=== PATIENT | female | born 1950 | race Hispanic/Latino ===

== ENCOUNTER → 2019-09-07 | Day surgery (SDC) | payer MEDICARE ==
[2019-09-01 09:00] LABS: BASOPHILS % 0.5 % (0.0-1.0); EOSINOPHILS # (AUTO) 0.2 (0.0-0.4); EOSINOPHILS % 2.3 % (0.0-6.0); HEMATOCRIT 40.1 % (34.2-44.1); HEMOGLOBIN 12.8 g/dL (12.0-16.0); LYMPHOCYTES # (AUTO) 2.4 (1.0-3.2); LYMPHOCYTES % 36.9 % (18.0-39.1); MEAN CORPUSCULAR HEMOGLOBIN 28.5 pg (28-32); MEAN CORPUSCULAR HGB CONC 31.9 g/dL (31-35); MEAN CORPUSCULAR VOLUME 89.3 fL (81-99); MONOCYTES # (AUTO) 0.3 (0.2-0.8); MONOCYTES % 5.2 % (4.4-11.3); NEUTROPHILS # (AUTO) 3.6 (2.1-6.9); NEUTROPHILS % 54.9 % (38.7-80.0); PLATELET COUNT 240 x10e3/uL (140-360); RED BLOOD COUNT 4.49 x10e6/uL (3.6-5.1); RED CELL DISTRIBUTION WIDTH 13.2 % (11.7-14.4)
[~2019-09-07] MED LIST: ATORVASTATIN CA20 MG PO; EPHEDRINE SULFATE INJ 50 MG/ML VIAL ONE; FENTANYL CITRATE/PF 100MCG/2 ML INJ ONE; LIDOCAINE HCL 2% LOCAL INJ 5 ML SDV VIAL INJ ONE; LOSARTAN POTAS100 MG PO; METFORMIN HCL500 M1 PO; MIDAZOLAM HCL 2 MG/2 ML VIAL ONE; PROPOFOL IV EMULSION 10 MG/ML 50 ML VIAL ONE
--- OUTSIDE RECORDS SUMMARY | 2019-09-07 05:20 | XMS REPORT ---
Author Author [facility] Address Unknown Phone Unavailable Care Team Providers Care First Officer Name Role Phone Unavailable Unavailable Problems This patient has no known problems. Allergies, Adverse Reactions, Alerts This patient has no known allergies or adverse reactions. Medications This patient has no known medications. Results Test Description Test Time Test Comments Text Results Atomic Results Result Comments SCR MAMM BILATERAL MARCO CAD DIGITAL 2018-09-07 13:29:35 - SCR MAMM BILATERAL MARCO CAD DIGITALBILATERAL DIGITAL SCREENING MAMMOGRAM 3D/2D WITH CAD: 08/21/2018CLINICAL: Asymptomatic. Digital breast tomosynthesis was performed in addition to routine CC and MLO views. Current mammographic images were evaluated by either a [employer] M-Vu or a [employer] CAD (computer aided detection system). Comparison is made to exams dated 03/06/2017 mammogram, 12/13 mammogram, 07/29/2014 mammogram, [facility] There are scattered fibroglandular tissues in both breasts. There are benign calcifications in the left breast. No suspicious mass, architectural distortion, malignant type calcification, or lymph node abnormality detected. Breast architecture is stable compared to prior exams.IMPRESSION: BENIGNThere is no mammographic evidence of malignancy. Resume annual screening mammography in one year. Emmanuelle cano/darwin:09/07/2018 13:29:35 Agricultural Economist: Beverly LOPES, [facility]-FWletter sent: BIRADS 1-2 Normal Mammogram BI-RADS: 2 Benign
--- OUTSIDE RECORDS SUMMARY | 2019-09-07 05:20 | XMS REPORT | Encounter Summary ---
Author Organization Unknown Address [address] [place] [address] Phone [phone] Care Team Providers Care Roller Setter Name Role Phone Dr. Leslee Dillard 3 [phone] Reason for Visit Benign essential hypertension; Mixed hyperlipidemia due to type 2 diabetes mellitus; Type 2 diabetes mellitus; diabetic foot exam; Annual Depression Screening Instructions 1. Type 2 diabetes mellitus HbA1c (hemoglobin A1c), blood 2. Mixed hyperlipidemia due to type 2 diabetes mellitus atorvastatin 20 mg tablet CMP, serum or plasma lipid panel, serum 3. Eye disorder screening diabetic ophthalmology referral 4. Depression screening learning about depression 5. Screening for disorder hepatitis C virus Ab, serum 6. Screening for malignant neoplasm of colon fecal occult blood, stool colonoscopy referral 7. Benign essential hypertension CBC w/ auto diff losartan 100 mg tablet 8. Body mass index 30+ - obesity body mass index: care instructions learning about healthy weight 9. Increased stress Discussion Note: None recorded. Plan of Care Reminders Provider Appointments Est Patient 06/18/2019 9:30AM Leslee Dillard MD Lab Hepatitis C Virus Ab, Serum 12/18/2018 [facility] Fecal Occult Blood, Stool 12/18/2018 [facility] HbA1C (Hemoglobin a1C), Blood 12/18/2018 [facility] CMP, Serum or Plasma 12/18/2018 [facility] Lipid Panel, Serum 12/18/2018 [facility] CBC W/ Auto Diff 12/18/2018 [facility] Referral Diabetic Ophthalmology Referral 12/18/2018 Liset Barth MD Colonoscopy Referral 12/18/2018 Christine Flores MD Procedures None recorded. Surgeries None recorded. Imaging None recorded. Medications Name Start Date atorvastatin 20 mg tablet TAKE 1 TABLET DAILY BY ORAL ROUTE losartan 100 mg tablet Take 1 tablet every day by oral route for 90 days. metformin ER 750 mg tablet,extended release 24 hr TAKE 2 TABLETS BY MOUTH EVERY DAY Medications Administered None recorded. Vitals Height Weight BMI Blood Pressure 5 ft 162 lbs 31.6 kg/m2 126/70 mm[Hg] Lab Results None recorded. Allergies Code Code System Name Reaction Severity Status Onset NKDA Problems Name Status Onset Date Source Type 2 Diabetes Mellitus Active 08/06/2018 Benign Essential Hypertension Active 08/06/2018 Vertigo Active 08/06/2018 Postmenopausal State Active 08/06/2018 Mixed Hyperlipidemia Due to Type 2 Diabetes Mellitus Active 08/06/2018 Procedures Date Name Performed by 07/14/2005 Other Information not available Vaccine List Vaccine Type influenza, injectable, quadrivalent 04/13/2018 pneumococcal conjugate PCV 13 08/03/20180.5 mL Social History Smoking Status Never Smoker Past Encounters 12/18/2018 Type 2 Diabetes Mellitus; Mixed Hyperlipidemia Due to Type 2 Diabetes Mellitus; Eye Disorder Screening; Depression Screening; Screening for Disorder; Screening for Malignant Neoplasm of Colon; Benign Essential Hypertension; Body Mass Index 30+ - Obesity; Increased Stress Leslee Dillard MD: [address] [place] [id number], Ph. History of Present Illness Note:68yo female presents for five month follow-up. Last visit was 08/04/18 for vertigo. Pt was evaluated by ENT, DR Alysha Petit on 08/21/18. Had audiology & Dr Petit tried Sara maneuver without improvement. Pt had some help with meclizine. Pt was sent for XAVI brain which turned out normal per pt. In total, vertigo lasted about 10days then resolved with maneuvers & meclizine. <div>Here today for labwork & medication refills.</div><div>Needs referral for repeat colonoscopy & diabetic eye exam.</div><div>
</div><div>Since last visit, pt had both mammogram & bone density at [facility] on 08/21/18. Normal mammogram. Bone density with osteopenia. Pt has started taking Caltrate 600mg calcium with vit D 2x/day.</div><div>
</div><div>Pt tearful today discussing with metastatic thyroid cancer. He is followed by [facility] - no further chemotherapy or XRT recommended. Is not on hospice care, but getting set up for palliative care for pain management. Pt notes her is in pain from bone mets, but declines to take the morphine he was given. Hard on pt to see him in pain. Declines counseling at this time - notes that family very supportive & children & grandchildren come every weekend to help. ( had thyroid cancer in 2008 with recent recurrence & is/was regularly going to [facility]).<div>
</div><div><div>PMHx:</div><div>Diabetes for past 10yrs. Currently on metofrmin 750mg two tablets qam. Does not check home blood sugar - needs approval for new monitor. Has last A1c in Mar 2018, but doesn't recall result. Has every six months. Went to [address] for eye exam about 09/2017 - no diabetic retinopathy. No known complications from diabetes.< /div><div>Hyperlipidemia for past 10yrs. Currently on atorvastatin 20mg qhs. Last lipids with okay in Mar 2018 - usually has bloodwork every 6mo.</div><div> Hypertension for past 10yrs. Currently on losartan 100mg qd. Good bp control per pt with bp <140/90.</div><div>Postmenopausal - Early menopause in early 40s. No HRT. No C-sections. .</div><div>Both mammogram & bone density at [facility] on 08/21/18. Normal mammogram. Bone density with osteopenia. Pt has started taking Caltrate 600mg calcium with vit D 2x/day.</div><div>Last colonoscopy about 10yrs ago at [facility]. No polyps per pt. Repeat in 10yrs per pt.
</div>< /div></div><div>Was seeing PCP Dr Viridiana Kumari for over 20yrs, but she moved office to [facility] area.</div> Review of Systems:ROS as noted in the HPI Review of Systems Comprehensive General Adult ROS Reported By: Patient Constitutional: Constitutional: no fever Eyes: Eyes: no vision change ENMT: Ears: no difficulty hearing, no ear pain. Nose: no nose problems, no sinus problems. Mouth/Throat: no sore throat Cardiovascular: Cardiovascular: no chest pain Respiratory: Respiratory: no cough, no wheezing, no shortness of breath Gastrointestinal: Gastrointestinal: no abdominal pain Neurologic: Neurologic: no loss of consciousness, no weakness, no numbness, no seizures, no dizziness, no migraines, no headaches, no tremor Psychiatric: Psych: no depression, no alcohol abuse, no anxiety Physical Exam General Adult Exam (Female), Diabetic Foot Exam Reported By: Patient Constitutional: General Appearance: healthy-appearing, well-nourished, well-developed. Level of Distress: NAD. Ambulation: ambulating normally Psychiatric: Mental Status: active and alert, normal mood, normal affect Eyes: Lids and Conjunctivae: non-injected. Pupils: PERRLA. EOM: EOMI. Lens: clear. Sclerae: non-icteric ENMT: Ears: EACs clear, TMs clear. Hearing: no hearing loss. Lips, Teeth, and Gums: no mouth or lip ulcers, no bleeding gums, normal dentition. Oropharynx: moist mucous membranes, no erythema, no exudates, tonsils not enlarged Neck: Neck: supple, FROM. Lymph Nodes: no cervical LAD. Thyroid: no enlargement, non-tender, no nodules Lungs: Respiratory effort: no dyspnea. Auscultation: breath sounds normal, good air movement, no wheezing, no rales/crackles Cardiovascular: Heart Auscultation: RRR, normal S1, normal S2, no murmurs. Neck vessels: no carotid bruits. Right Pulses: normal dorsalis pedis pulse. Left Pulses: normal dorsalis pedis pulse Abdomen: Bowel Sounds: normal. Inspection and Palpation: soft Musculoskeletal:: Motor Strength and Tone: normal motor strength. Joints, Bones, and Muscles: normal movement of all extremities. Extremities: no edema Neurologic: Gait and Station: normal gait, normal station. Cranial Nerves: grossly intact. Coordination and Cerebellum: no tremor. Sensation Right Foot: sensation intact, normal monofilament wire test, no tactile decrease on the sole of the foot. Sensation Left Foot: sensation intact, normal monofilament wire test, no tactile decrease on the sole of the foot Skin: Inspection and palpation: no rash. Right Lower Extremity: normal. Left Lower Extremity: normal Foot Exam:: Right Foot: right foot was examined, right foot toes were examined, digital hair present right, no interdigital erythema, normal motion, no deformity. Left Foot: left foot was examined, left foot toes were examined, digital hair present left, no interdigital erythema, normal motion, no deformity
--- OUTSIDE RECORDS SUMMARY | 2019-09-07 05:20 | XMS REPORT | Encounter Summary ---
Author Organization Unknown Address [address] [place] [address] Phone [phone] Care Team Providers Care Display Fabrication Supervisor Name Role Phone Dr. Leslee Dillard 3 [phone] Reason for Visit AWV Annual Wellness Visit Female (VFP) Instructions 1. Adult health examination 2. Benign essential hypertension TSH, serum or plasma 3. Body mass index 25-29 - overweight learning about healthy weight 4. Advance directive discussed with patient advance care planning: care instructions 5. Depression screening 6. Mixed hyperlipidemia due to type 2 diabetes mellitus lipid panel, serum CMP, serum or plasma 7. Postmenopausal state bone density 8. Type 2 diabetes mellitus HbA1c (hemoglobin A1c), blood microalbumin/creatinine, mass ratio, urine 9. Immunization Shingrix Adjuvant Component (PF) intramuscular suspension Pneumovax 23 25 mcg/0.5 mL injection syringe 10. Screening mammography mammogram: about this test MAMMO, screening, digital, bilateral 11. Screening for disorder hepatitis C virus RNA, quant, PCR, serum or plasma 12. Disorder of vitamin D vitamin D, 25-hydroxy, total, serum 13. Osteopenia 14. Screening for malignant neoplasm of skin dermatology referral - Please contact patient to souleymane. Thank you! 15. Seborrheic dermatitis clobetasol 0.05 % scalp solution Discussion Note: None recorded. Plan of Care Patient Instructions It was good to see you in the office today for your Medicare Annual Wellness Visit. You have been provided some information on healthy nutrition, including a diet rich in fruits and vegetables, minimizing simple carbohydrates, salt, and saturated fats. I want to encourage regular cardiovascular exercise such as walking at least 30 minutes daily, 5 times per week. Please remember to schedule any preventive health measures that we talked about today. You have also been provided education on fall prevention and community- based lifestyle interventions to help reduce health risks and promote healthy living in your Annual Wellness folder. Screening Recommendations 1. Vaccines Pneumonia: Ordered Influenza: Next Fall 2. Mammography Screening: Ordered for 08/2019 at [facility]. 3. Colorectal Cancer Screening: Colonoscopy (every 10 years) Referral to Dr Mark PERRIN printed for pt. 4. Annual Depression Screening 5. Annual Alcohol Screening 6. Annual Fall Risk Screening 7. Annual Health Risk Assessment Reminders Provider Appointments None recorded. Lab HbA1C (Hemoglobin a1C), Blood 07/06/2019 [facility] Lipid Panel, Serum 07/06/2019 [facility] CMP, Serum or Plasma 07/06/2019 [facility] Hepatitis C Virus RNA, Quant, PCR, Serum or Plasma 07/06/2019 [facility] Microalbumin/creatinine, Mass Ratio, Urine 07/06/2019 [facility] TSH, Serum or Plasma 07/06/2019 [facility] Vitamin D, 25-Hydroxy, Total, Serum 07/06/2019 [facility] Referral Dermatology Referral 07/06/2019 Fallon Caro MD Procedures None recorded. Surgeries None recorded. Imaging Bone Density 08/21/2019 [facility] MAMMO, Screening, Digital, Bilateral 08/21/2019 [facility] Medications Name Start Date atorvastatin 20 mg tablet TAKE 1 TABLET BY MOUTH EVERY DAY clobetasol 0.05 % scalp solution APPLY TO THE AFFECTED SCALP AREA BY TOPICAL ROUTE 2 TIMES PER DAY IN THE MORNING AND EVENING losartan 100 mg tablet TAKE 1 TABLET BY MOUTH EVERY DAYDUE CELINA!!! metformin ER 750 mg tablet,extended release 24 hr TAKE 2 TABLETS DAILY BY ORAL ROUTE Medications Administered None recorded. Vitals Height Weight BMI Blood Pressure 5 ft 152 lbs 29.7 kg/m2 138/80 mm[Hg] Results Lab Results None recorded. Allergies Code Code [...] List Vaccine Type influenza, injectable, quadrivalent 04/13/2018 04/27/2019 pneumococcal conjugate PCV 13 08/03/20180.5 mL pneumococcal polysaccharide PPV23 0.5 mL zoster recombinant 1 0.5 mL vial(s) Social History Tobacco Smoking Status Never Smoker Past Encounters 07/06/2019 Adult Health Examination; Benign Essential Hypertension; Body Mass Index 25-29 - Overweight; Advance Directive Discussed with Patient; Depression Screening; Mixed Hyperlipidemia Due to Type 2 Diabetes Mellitus; Postmenopausal State; Type 2 Diabetes Mellitus; Immunization; Screening Mammography; Screening for Disorder; Disorder of Vitamin D; Osteopenia; Screening for Malignant Neoplasm of Skin; Seborrheic Dermatitis Leslee Dillard MD: [id number] [place] [address], Ph. History of Present Illness Mini Cog Reported By: Patient Functional Ability: Personal/Social/ Draw a clock and write in the numbers in the correct place, and set the time to 10 minutes after 11 o'clock was completed correctly? Yes, 3 word recall: Your nurse or doctor will ask you to remember 3 words. In 5 minutes, they will ask you to repeat them. Patient recalled 3 words Opioid Use Assessment Reported By: Patient Opioid Use Assessment:: Current Use of Opioids : no use of opioids (no further questions required) Note:68yo female presents for initial AWV and six-month follow-up. Last visit was 12/18/18.<div>Since last visit pt had her diabetic eye exam at [facility] on 01/06/19. No diabetic retinopathy.</div><div>Since last visit pt had negative FOBT in 12/2018. Discussed screening colonoscopy & referral to Dr Ej ly for pt. Reviewed cologuard, but will get colonoscopy as last colonoscopy was >10yrs ago.</div><div>Pt is due for next mammogram in Aug 2019 at [facility]. Also due for bone density.</div><div>Would like to see recycling program manager for skin cancer screening. Has two lesions on face for the past week. Also with scaling/flaky skin on scalp - mildly itchy.</div><div>No further episodes of vertigo.</div><div>Pt's recently last month on May 18 at age 69 after having metastatic thyroid cancer. They had been almost 49yrs. Is surrounded with supportive family/children, but first holiday season without will be difficult. Declines grief counseling or medication at this time, but have discussed that we are available to help if she changes her mind.</div><div>Is fasting today for labs. Discussed advanced directives/medical POA - [facility] [employer] folder given & reviewed.</div><div>
</div><div>Previously:</div><div>Pt was evaluated by ENT, DR Alysha Petit on 08/21/18. Had audiology & MRI brain which turned out normal per pt. In total, vertigo lasted about 10days then resolved with maneuvers & meclizine. </div><div><div>
</div><div>Since last visit, pt had both mammogram & bone density at [facility] on 08/21/18. Normal mammogram. Bone density with ost eopenia. Pt has started taking Caltrate 600mg calcium with vit D 2x/day.</div>< div>
</div><div>Pt tearful today discussing with metastatic thyroid cancer. He is followed by [facility] - no further chemotherapy or XRT recommended. [...] to help. ( had thyroid cancer in 2007 with recent recurrence & is/was regularly going to [facility]).<div>
</div>< div><div>PMHx:</div><div>Diabetes for past 10yrs. Currently on metformin 750mg two tablets qam. Does not check home blood sugar - needs approval for new monitor. Has last A1c in Mar 2018, but doesn't recall result. Has every six months. Went to [facility] for eye exam about 09/2017 - no diabetic retinopathy. No known complications from diabetes.</div><div>Hyperlipidemia for past 10yrs. Currently on atorvastatin 20mg qhs. Last lipids with okay in Mar 2018 - usually has bloodwork every 6mo.</div><div>Hypertension for past 10yrs. Currently on losartan 100mg qd. Good bp control per pt with bp <140/90.</div> <div>Postmenopausal - Early menopause in early 40s. No HRT. No C-sections. . </div><div>Both mammogram & bone density at [facility] on 08/21/18. Normal mammogram. Bone density with osteopenia. Pt has started taking Caltrate 600mg calcium with vit D 2x/day.</div><div>Last colonoscopy about 10yrs ago at [facility]. No polyps per pt. Repeat in 10yrs per pt.
</div></div></div><div>Was seeing PCP Dr Viridiana Kumari for over 20yrs, but she moved office to [facility] area.</div>< /div> Review of Systems:ROS as noted in the [...] no anxiety Physical Exam General Adult Exam (Female) Reported By: Patient Constitutional: General Appearance: healthy-appearing, [...] S2, no murmurs. Neck vessels: no carotid bruits Abdomen: Bowel Sounds: normal. Inspection and Palpation: soft Musculoskeletal:: Motor Strength and Tone: normal motor strength. Joints, Bones, and Muscles: normal movement of all extremities. Extremities: no edema Neurologic: Gait and Station: normal gait, normal station. Cranial Nerves: grossly intact. Coordination and Cerebellum: no tremor Skin: Inspection and palpation: rash; mild erythema & fine scaling of scalp at hairline of forehead, no excoriation
--- OUTSIDE RECORDS SUMMARY | 2019-09-07 05:20 | XMS REPORT | Encounter Summary ---
Author Organization Unknown Address [address] [place] [address] Phone [phone] Care Team Providers Care Investment Counselor Name Role Phone Dr. Leslee Dillard 3 [phone] Reason for Visit dizziness Instructions 1. Vertigo vertigo: care instructions ENT referral - please schedule & contact our patient. Thank you. meclizine 12.5 mg tablet benign paroxysmal positional vertigo (bppv): care instructions vertigo: exercises prashanth maneuver for vertigo: exercises 2. Immunization Prevnar 13 (PF) 0.5 mL intramuscular syringe 3. Body mass index 30+ - obesity body mass index: care instructions learning about healthy weight 4. Screening for malignant neoplasm of colon 5. Screening mammography MAMMO, screening, digital, bilateral - please schedule & contact our patient. Thank you. mammogram: about this test 6. Benign essential hypertension losartan 100 mg tablet CBC w/ auto diff TSH, serum or plasma 7. Type 2 diabetes mellitus HbA1c (hemoglobin A1c), blood CMP, serum or plasma microalbumin:creatinine ratio, urine blood-glucose meter kit 8. Mixed hyperlipidemia due to type 2 diabetes mellitus lipid panel, serum 9. Postmenopausal state vitamin D, 25-hydroxy, total, serum bone density - Please schedule & contact our patient. Thank you. 10. Depression screening Discussion Note: None recorded. Plan of Care Reminders Provider Appointments Return to Office on or around 08/24/2018 Leslee Dillard MD Lab HbA1C (Hemoglobin a1C), Blood 08/03/2018 [facility] CMP, Serum or Plasma 08/03/2018 [facility] Microalbumin:creatinine Ratio, Urine 08/03/2018 [facility] Lipid Panel, Serum 08/03/2018 [facility] CBC W/ Auto Diff 08/03/2018 [facility] TSH, Serum or Plasma 08/03/2018 [facility] Vitamin D, 25-Hydroxy, Total, Serum 08/03/2018 [facility] Referral ENT Referral 08/03/2018 Driss Corona MD Procedures None recorded. Surgeries None recorded. Imaging MAMMO, Screening, Digital, Bilateral 08/03/2018 [facility] Bone Density 08/03/2018 [facility] Medications Name Start Date atorvastatin 20 mg tablet Take 1 tablet every day by oral route for 90 days. losartan 100 mg tablet Take 1 tablet every day by oral route for 90 days. meclizine 12.5 mg tablet Take 2 tablets 3 times a day by oral route as needed for 10 days. metformin ER 750 mg tablet,extended release 24 hr Take 2 tablets every day by oral route. Medications Administered None recorded. Vitals Height Weight BMI Blood Pressure 5 ft 158 lbs 30.9 kg/m2 140/80 mm[Hg] Lab Results None recorded. Allergies Code Code System Name Reaction Severity Status Onset NKDA Problems Name Status Onset Date Source Type 2 Diabetes Mellitus Active 08/06/2018 Benign Essential Hypertension Active 08/06/2018 Vertigo Active 08/06/2018 Postmenopausal State Active 08/06/2018 Mixed Hyperlipidemia Due to Type 2 Diabetes Mellitus Active 08/06/2018 Procedures Date Name Performed by 07/14/2005 Other Information not available 08/03/2018 MAMMO, Screening, Digital, Bilateral [facility] [address] [place], [place] [id number] (Work Place) 08/03/2018 Bone Density [facility] [address] [place] [address] (Work [address]) Vaccine List Vaccine Type influenza, injectable, quadrivalent 04/13/2018 pneumococcal conjugate PCV 13 08/03/20180.5 mL Social History Smoking Status Never Smoker Past Encounters 08/03/2018 Vertigo; Immunization; Body Mass Index 30+ - Obesity; Screening for Malignant Neoplasm of Colon; Screening Mammography; Benign Essential Hypertension; Type 2 Diabetes Mellitus; Mixed Hyperlipidemia Due to Type 2 Diabetes Mellitus; Postmenopausal State; Depression Screening Leslee Dillard MD: [address] [place] [address], Ph. History of Present Illness Dizziness Reported By: Patient HPI: Quality: symptoms worse in the evening, spinning. Severity: no effect on daily activities. Duration: intermittent episodes lasting:, lasts <5 minutes; morning & evenings. Onset/Timing: actual date of onset:. Context: non-smoker, occurs in a cyclical pattern, positional, history of high Blood Pressure. Modifying Factors: change in position. Alleviating factors: holding still. Aggravating factors: positional change; can feel head spinning in sleep. Associated Symptoms: no double vision, no dysphagia, no slurred speech, no blurred vision, no vision changes, no foggy vision, no blindness, no spots in field of vision, no eye pain, no hearing loss, no difficulty understanding speech, no ear discharge, no ringing in the ears, no pressure in ears, no noise in the ears, no earache, no syncope, no loss of consciousness, no headache, no head pressure, no weak limbs, no facial numbness, no difficulty with speech, no tingling around the mouth, normal stools, no sensation of heart racing, no history of falls, no seizure, no facial weakness, no tingling of fingers, no audible eye movements, nausea, vomiting, history of hypertension, history of diabetes Note:68yo female presents with daughter for evaluation of dizziness for past week. Woke up last Friday morning 07/27/18 and room was spinning. Sat on side of bed for several minute, but then subsided. Did not happen during day, but reoccurring every night. Spinning is worse when she is laying in bed & turns over. Has never had dizziness like this before. Is dizzy at this appt - fasting, prefers room darkened. Had N/V a week ago, last Friday. No fever. No falls. No recent URI symptoms - no cough, runny nose, ear pain, sore throat, ch est pain, shortness of breath, trouble with hearing or vision, no blurred or brigido ble vision. Has not taken medicatons except prescriptions. NKDA.<div>Nonsmoker.< div>
<div>New to [facility]. Was seeing PCP Dr Viridiana Kumari for over 20yrs, but she moved office to [facility] area. Last visit was in Mar 2018.</div><div>PMHx:</div> <div>Diabetes for past 10yrs. Currently on metofrmin 750mg two tablets qam. Does not check home blood sugar - needs approval for new monitor. Has last A1c in Mar 2018, but doesn't recall result. Has every six months. Went to [facility] for eye exam about 09/2017 - no diabetic retinopathy. No known complications from diabetes.</div><div>Hyperlipidemia for past 10yrs. Currently on atorvastatin 20mg qhs. Last lipids with okay in Mar 2018 - usually has bloodwork every 6mo.< /div><div>Hypertension for past 10yrs. Currently on losartan 100mg qd. Good bp control per pt with bp <140/90.</div><div>Postmenopausal - has never had bone density test, but started OTC vit D3 to prevent problems. Does not take calcium. Early menopause in early 40s. No HRT. No C-sections. .</div><div> Last mammogram in 2016 at [facility] ( had thyroid cancer in 2007 with recent recurrence & is/was regularly going to [facility]).</div><div>Last colonoscopy about 5yrs ago at [facility]. No polyps per pt. Repeat in 10yrs per pt.</div></div>< /div> Review of Systems:ROS as noted in [...] no weakness, no numbness, no seizures, no migraines, no headaches, no tremor, dizziness Psychiatric: Psych: no depression, no alcohol abuse, [...] no edema Neurologic: Gait and Station: normal gait. Cranial Nerves: grossly intact. Coordination and Cerebellum: no tremor Skin: Inspection and palpation: no rash
--- NOTE | 2019-09-07 07:15 | NUR ---
SPIRITUAL CARE - Pre-Surgery Assessment: Pt in bed. Pt's sister at bedside. Pt reported supportive attention from family and friends. Intervention: I provided pastoral presence, hospitality, sympathetic listening, and prayer. I acquainted pt with availability of impression printer while hospitalized. Outcome: Pt expressed appreciation for visit. No need for follow up indicated at this time. KATHRINE Yañezlain Spiritual Care Department O: [phone] Pager: [phone] ([phone] number calling from)
[2019-09-07 08:35] VITALS: BP 112/75
== END | disposition home or self-care (01) ==
LOC: OR 05:04
PROVIDERS: ATTEND Internal Medicine Gastroenterology
DX: Z12.11 Encounter for screening for malignant neoplasm of colon (principal); D12.2 Benign neoplasm of ascending colon; D12.3 Benign neoplasm of transverse colon; K64.8 Other hemorrhoids; I10 Essential (primary) hypertension; R00.1 Bradycardia, unspecified; E78.5 Hyperlipidemia, unspecified; E11.9 Type 2 diabetes mellitus without complications; Z79.84 Long term (current) use of oral hypoglycemic drugs; Z68.31 Body mass index [BMI] 31.0-31.9, adult
CPT/HCPCS: 36415 ×2; 45384; 82948; 85025; 93005; J2001; J2250; J2704; J3010; 45378

== ENCOUNTER 2021-11-09 10:00 | Outpatient (RCR) | payer MEDICARE, OTHER ==
[~2021-11-09 10:00] MED LIST changes: -EPHEDRINE SULFATE INJ 50 MG/ML VIAL ONE; -FENTANYL CITRATE/PF 100MCG/2 ML INJ ONE; -LIDOCAINE HCL 2% LOCAL INJ 5 ML SDV VIAL INJ ONE; -MIDAZOLAM HCL 2 MG/2 ML VIAL ONE; -PROPOFOL IV EMULSION 10 MG/ML 50 ML VIAL ONE
== END 2021-11-10 ==
LOC: OT 10:00
PROVIDERS: ATTEND Specialist
DX: M75.01 Adhesive capsulitis of right shoulder (principal); M75.02 Adhesive capsulitis of left shoulder; M75.41 Impingement syndrome of right shoulder; M75.42 Impingement syndrome of left shoulder

== ENCOUNTER 2021-11-27 07:55 | Outpatient (RCR) | payer OTHER ==
[2021-11-30] MEDS ORDERED: ULTRAM 50MG50 MG PO (09:43)
[2021-11-30] MEDS ORDERED: MELOXICAM7.5 MG PO (09:48)
[2021-12-05] MEDS ORDERED: TIZANIDINE HCL4 MG PO (05:50)
[2021-12-05] MEDS ORDERED: GABAPENTIN100 MG PO (05:50)
== END 2021-12-11 ==
LOC: OT 07:55
PROVIDERS: ATTEND Specialist
DX: M75.01 Adhesive capsulitis of right shoulder (principal); M75.02 Adhesive capsulitis of left shoulder; M75.41 Impingement syndrome of right shoulder; M75.42 Impingement syndrome of left shoulder

== ENCOUNTER → 2021-12-05 | Day surgery (SDC) | payer MEDICARE ==
[2021-11-30 11:32] LABS: BASOPHILS % 0.4 % (0.0-1.0); EOSINOPHILS # (AUTO) 0.1 (0.0-0.4); EOSINOPHILS % 1.5 % (0.0-6.0); HEMATOCRIT 34.7 % (34.2-44.1); HEMOGLOBIN 10.6 g/dL (12.0-16.0); LYMPHOCYTES # (AUTO) 2.9 (1.0-3.2); LYMPHOCYTES % 30.2 % (18.0-39.1); MEAN CORPUSCULAR HEMOGLOBIN 28.2 pg (28-32); MEAN CORPUSCULAR HGB CONC 30.5 g/dL (31-35); MEAN CORPUSCULAR VOLUME 92.3 fL (81-99); MONOCYTES # (AUTO) 0.5 (0.2-0.8); MONOCYTES % 5.4 % (4.4-11.3); NEUTROPHILS % 62.3 % (38.7-80.0); PLATELET COUNT 327 x10e3/uL (140-360); RED BLOOD COUNT 3.76 x10e6/uL (3.6-5.1); RED CELL DISTRIBUTION WIDTH 13.4 % (11.7-14.4)
[2021-11-30 11:52] LABS: ANION GAP 14.5 mmol/L (8-16); CREATININE, SERUM 0.73 mg/dL (0.57-1.11); POTASSIUM 4.5 mmol/L (3.5-5.1)
[~2021-12-05] MED LIST changes: +DEXAMETHASONE SOD PHOS INJ 4 MG/ML SDV ONE; +EPHEDRINE SULFATE INJ 50 MG/ML VIAL ONE; +EPINEPHRINE 1 MG/ML 30ML VIAL ONE; +FENTANYL CITRATE/PF 100MCG/2 ML INJ ONE; +GABAPENTIN100 MG PO; +GLYCOPYRROLATE INJ 0.2 MG/ML VIAL ONE; +HYDROCODONE/APAP 5MG-325MG TAB ONE; +KETOROLAC TROMETHAMINE 30 MG/ML VIAL ONE; +LIDOCAINE HCL 2% LOCAL INJ 5 ML SDV VIAL INJ ONE; +MELOXICAM7.5 MG PO; +MIDAZOLAM HCL 2 MG/2 ML VIAL ONE; +NEOSTIGMINE 1 MG/ML 10ML VIAL ONE; +ONDANSETRON HCL INJ 2MG/ML 2ML 2 MG/ML VIAL ONE; +POVIDONE IODINE 0.05% 0.05 % ML PO ONE; +PROPOFOL IV EMULSION 10 MG/ML 20 ML VIAL ONE; +ROCURONIUM BROMIDE 10 MG/ML 5ML VIAL IV ONE; +ROPIVACAINE 0.5% 5 MG/ML 30 ML SDV ONE; +SEVOFLURANE INHAL SOLN 250 ML PEN BTL ONE; +TIZANIDINE HCL4 MG PO; +ULTRAM 50MG50 MG PO
[2021-12-05 10:40] VITALS: BP 159/77
== END | disposition home or self-care (01) ==
LOC: OR 05:58
PROVIDERS: ATTEND Specialist
DX: M75.111 Incomplete rotator cuff tear or rupture of right shoulder, not specified as traumatic (principal); M19.011 Primary osteoarthritis, right shoulder; M75.01 Adhesive capsulitis of right shoulder; S46.211A Strain of muscle, fascia and tendon of other parts of biceps, right arm, initial encounter; M75.51 Bursitis of right shoulder; M94.211 Chondromalacia, right shoulder; M75.112 Incomplete rotator cuff tear or rupture of left shoulder, not specified as traumatic; M75.02 Adhesive capsulitis of left shoulder; M19.012 Primary osteoarthritis, left shoulder; E11.9 Type 2 diabetes mellitus without complications; I10 Essential (primary) hypertension; R00.1 Bradycardia, unspecified; E78.5 Hyperlipidemia, unspecified; X58.XXXA Exposure to other specified factors, initial encounter; Z01.810 Encounter for preprocedural cardiovascular examination; Z01.812 Encounter for preprocedural laboratory examination; Z01.818 Encounter for other preprocedural examination; Z20.822 Contact with and (suspected) exposure to COVID-19; Z79.84 Long term (current) use of oral hypoglycemic drugs; Z79.899 Other long term (current) drug therapy
CPT/HCPCS: 29824; 29826; 29827; 36415 ×2; 71046; 80048; 82948; 85025; 93005; C1713; J0690; J1100; J1885; J2001; J2250; J2405; J2704; J2710; J2795; J3010; U0002

== ENCOUNTER 2022-03-08 08:49 | Outpatient (RCR) | payer MEDICARE ==
[~2022-03-08 08:49] MED LIST changes: -DEXAMETHASONE SOD PHOS INJ 4 MG/ML SDV ONE; -EPHEDRINE SULFATE INJ 50 MG/ML VIAL ONE; -EPINEPHRINE 1 MG/ML 30ML VIAL ONE; -FENTANYL CITRATE/PF 100MCG/2 ML INJ ONE; -GLYCOPYRROLATE INJ 0.2 MG/ML VIAL ONE; -HYDROCODONE/APAP 5MG-325MG TAB ONE; -KETOROLAC TROMETHAMINE 30 MG/ML VIAL ONE; -LIDOCAINE HCL 2% LOCAL INJ 5 ML SDV VIAL INJ ONE; -MIDAZOLAM HCL 2 MG/2 ML VIAL ONE; -NEOSTIGMINE 1 MG/ML 10ML VIAL ONE; -ONDANSETRON HCL INJ 2MG/ML 2ML 2 MG/ML VIAL ONE; -POVIDONE IODINE 0.05% 0.05 % ML PO ONE; -PROPOFOL IV EMULSION 10 MG/ML 20 ML VIAL ONE; -ROCURONIUM BROMIDE 10 MG/ML 5ML VIAL IV ONE; -ROPIVACAINE 0.5% 5 MG/ML 30 ML SDV ONE; -SEVOFLURANE INHAL SOLN 250 ML PEN BTL ONE
== END 2022-03-13 ==
LOC: OT 08:49
PROVIDERS: ATTEND Specialist
DX: Z47.89 Encounter for other orthopedic aftercare (principal); M75.111 Incomplete rotator cuff tear or rupture of right shoulder, not specified as traumatic

== ENCOUNTER → 2022-04-03 | Day surgery (SDC) | payer MEDICARE ==
[2022-04-02 08:28] LABS: BASOPHILS % 0.2 % (0.0-1.0); EOSINOPHILS # (AUTO) 0.2 (0.0-0.4); EOSINOPHILS % 2.2 % (0.0-6.0); HEMATOCRIT 37.7 % (34.2-44.1); HEMOGLOBIN 11.8 g/dL (12.0-16.0); LYMPHOCYTES # (AUTO) 2.3 (1.0-3.2); LYMPHOCYTES % 28.2 % (18.0-39.1); MEAN CORPUSCULAR HEMOGLOBIN 27.7 pg (28-32); MEAN CORPUSCULAR HGB CONC 31.3 g/dL (31-35); MEAN CORPUSCULAR VOLUME 88.5 fL (81-99); MONOCYTES # (AUTO) 0.5 (0.2-0.8); MONOCYTES % 5.5 % (4.4-11.3); NEUTROPHILS # (AUTO) 5.2 (2.1-6.9); NEUTROPHILS % 63.7 % (38.7-80.0); PLATELET COUNT 267 x10e3/uL (140-360); RED BLOOD COUNT 4.26 x10e6/uL (3.6-5.1); RED CELL DISTRIBUTION WIDTH 14.3 % (11.7-14.4)
[~2022-04-03] MED LIST changes: +CALTRATE PO; +DEXAMETHASONE SOD PHOS INJ 4 MG/ML SDV ONE; +EPHEDRINE SULFATE INJ 50 MG/ML VIAL ONE; +EPINEPHRINE 1 MG/ML 30ML VIAL ONE; +FENTANYL CITRATE/PF 100MCG/2 ML INJ ONE; +GLYCOPYRROLATE INJ 0.2 MG/ML VIAL ONE; +HYDROCODONE/APAP 5MG-325MG TAB ONE; +LIDOCAINE HCL 2% LOCAL INJ 5 ML SDV VIAL INJ ONE; +MIDAZOLAM HCL 2 MG/2 ML VIAL ONE; +NEOSTIGMINE 1 MG/ML 10ML VIAL ONE; +ONDANSETRON HCL INJ 2MG/ML 2ML 2 MG/ML VIAL ONE; +PHENYLEPHRINE HCL 1% 10 MG/ML VIAL ONE; +POVIDONE IODINE 0.05% 0.05 % ML PO ONE; +PROPOFOL IV EMULSION 10 MG/ML 20 ML VIAL ONE; +ROCURONIUM BROMIDE 10 MG/ML 5ML VIAL IV ONE; +ROPIVACAINE 0.5% 5 MG/ML 30 ML SDV ONE; +SEVOFLURANE INHAL SOLN 250 ML PEN BTL ONE; +VITAMIN D3125 MCG PEG
[2022-04-03 11:10] VITALS: BP 147/80
== END | disposition home or self-care (01) ==
LOC: OR 07:26
PROVIDERS: ATTEND Specialist
DX: M75.112 Incomplete rotator cuff tear or rupture of left shoulder, not specified as traumatic (principal); M19.012 Primary osteoarthritis, left shoulder; M75.52 Bursitis of left shoulder; M24.612 Ankylosis, left shoulder; M65.812 Other synovitis and tenosynovitis, left shoulder; E11.9 Type 2 diabetes mellitus without complications; I10 Essential (primary) hypertension; E78.5 Hyperlipidemia, unspecified; R00.1 Bradycardia, unspecified; Z01.810 Encounter for preprocedural cardiovascular examination; Z01.812 Encounter for preprocedural laboratory examination; Z01.818 Encounter for other preprocedural examination; Z79.84 Long term (current) use of oral hypoglycemic drugs; Z79.899 Other long term (current) drug therapy
CPT/HCPCS: 29824; 29826; 29827; 36415 ×2; 71046; 82948; 85025; 93005; C1713; J0690; J1100; J2001; J2250; J2370; J2405; J2704; J2710; J2795; J3010